=== PATIENT | male | born 1970 | race Caucasian/White ===

== ENCOUNTER → 2016-11-15 20:25 | Outpatient (CLI) | payer BC | END | disposition home or self-care (01) | LOC: D.SLEEP 10-24 20:00 | DX: G47.33 Obstructive sleep apnea (adult) (pediatric) (principal) ==

== ENCOUNTER → 2016-12-15 12:22 | Outpatient (CLI) | payer BC | END | disposition home or self-care (01) | LOC: D.CN 12:22 | DX: R41.3 Other amnesia (principal) ==

== ENCOUNTER 2017-11-25 06:05 | Emergency (ER) | payer MEDICAID ==
[~2017-11-25] VITALS: Ht 172.7 cm; Wt 68.2 kg
[2017-11-25 06:15] VITALS: BP 105/58; Ht 172.7 cm; Wt 68.2 kg
[2017-11-25] MEDS ORDERED: VALIUM 2 MG TAB2 MG (06:17)
[2017-11-25] MEDS ORDERED: GABAPENTIN100 MG (06:17)
[2017-11-25] MEDS ORDERED: HYDROCODON-ACE1 EAC7 (06:17)
[2017-11-25] MEDS ORDERED: PAXIL10 MG/5 ML (06:17)
[2017-11-25] MEDS ORDERED: OXYCONTIN10 MG PO (06:31)
== END 2017-11-25 06:47 | disposition home or self-care (01) ==
LOC: D.ER 06:05
DX: M54.9 Dorsalgia, unspecified (principal); R51 Headache; F17.200 Nicotine dependence, unspecified, uncomplicated

== ENCOUNTER 2018-07-01 10:06 | Emergency (ER) | payer MEDICAID ==
[~2018-07-01] VITALS: Ht 172.7 cm; Wt 75.0 kg
[~2018-07-01 10:06] MED LIST: GABAPENTIN100 MG; HYDROCODON-ACE1 EAC7; OXYCONTIN10 MG PO; PAXIL10 MG/5 ML; VALIUM 2 MG TAB2 MG
[2018-07-01 10:20] VITALS: Ht 172.7 cm; Wt 75.0 kg
[2018-07-01 11:39] VITALS: BP 134/78
== END 2018-07-01 11:40 | disposition home or self-care (01) ==
LOC: D.ER 10:06
DX: M54.5 Low back pain (principal)

== ENCOUNTER 2018-12-13 18:37 | Emergency (ER) | payer MEDICAID ==
[~2018-12-13] VITALS: Ht 172.7 cm; Wt 77.3 kg
[2018-12-13 18:47] VITALS: Ht 172.7 cm; Wt 77.3 kg
[2018-12-13] MEDS ORDERED: VALIUM10 MG PO (18:52)
[2018-12-13] MEDS ORDERED: DEXILANT60 MG PO (18:53)
[2018-12-13] MEDS ORDERED: ZANAFLEX4 MG PO (18:55)
[2018-12-13 19:11] LABS: BASOPHILS 0.5 % (0-2); EOSINOPHILS 1.6 % (0-7); HEMATOCRIT 41.6 % (42.0-54.0); HEMOGLOBIN 14.3 g/dL (13.5-17.5); IMMATURE GRANULOCYTES 0.3 % (0-5); LYMPHOCYTES 20.9 % (15-50); MCH 31.4 pg (26.0-34.0); MCHC 34.4 g/dL (31.0-37.0); MCV 91.4 fL (80.0-100.0); MEAN PLATELET VOLUME 9.7 fL (7.4-10.4); MONOCYTES 9.8 % (2-11); NEUTROPHILS 66.9 % (40-80); PLATELET COUNT 398 10x3/uL (130-400); RBC 4.55 10x6/uL (4.20-6.10); RDW 13.3 % (11.5-14.5); WBC 16.2 10x3/uL (4.8-10.8)
[2018-12-13 19:29] LABS: ALBUMIN 4.2 g/dL (3.4-5.0); ALKALINE PHOSPHATASE 141 U/L (46-116); ALT (SGPT) 19 U/L (10-68); BILIRUBIN - TOTAL 0.48 mg/dL (0.2-1.3); CALC OSMOLALITY 277 mosm/kg (275-300); CALCIUM 9.6 mg/dL (8.5-10.1); CARBON DIOXIDE 27.9 mmol/L (21.0-32.0); CHLORIDE - SERUM 102 mmol/L (98-107); GLUCOSE 86 mg/dL (74-106); POTASSIUM - SERUM 4.7 mmol/L (3.5-5.1); PROTEIN - SERUM 8.1 g/dL (6.4-8.2); SODIUM 139 mmol/L (136-145); UREA NITROGEN 16 mg/dL (7-18); eGFR NON AFRICAN AMERICAN 84 mL/min (90-120)
[2018-12-13 19:38] LABS: CKMB 1.5 U/L (0.0-3.6); CREATINE KINASE 367 UL (21-232); MAGNESIUM - SERUM 2.1 mg/dL (1.8-2.4); THYROID STIMULATING HORMONE 0.87 uIU/mL (0.36-3.74)
[2018-12-13 19:41] LABS: TROPONIN-I < 0.017 ng/mL (0.000-0.060)
[2018-12-13 19:49] LABS: APTT 29.7 SECONDS (22.8-39.4); INR 0.99 (0.85-1.17); PROTIME 12.6 SECONDS (11.6-15.0)
[2018-12-13 23:23] VITALS: BP 137/90
== END 2018-12-13 23:24 | disposition other institution (70) ==
LOC: D.ER 18:37
PROVIDERS: Family Medicine
DX: I63.9 Cerebral infarction, unspecified (principal); R29.810 Facial weakness; R47.81 Slurred speech; R26.2 Difficulty in walking, not elsewhere classified